=== PATIENT | male | born 1970 ===

== ENCOUNTER → 2025-01-17 | Outpatient (CLI) | payer BC | END | disposition home or self-care (01) | LOC: LAB SHORT 10:19 → LAB 10:19 | DX: H02.822 Cysts of right lower eyelid (principal) | CPT/HCPCS: 88305 ==

== ENCOUNTER 2025-05-29 12:10 | Day surgery (SDC) | payer OTHER ==
[~2025-05-29] VITALS: Ht 175.3 cm; Wt 126.5 kg
[~2025-05-29 12:10] MED LIST: METF500 PO; SILD50TA PO
[2025-05-29 12:35] VITALS: BP 155/98
--- NOTE | 2025-05-29 12:46 | NUR ---
ANESTHESIA CONSULT REQUESTED DUE TO PT'S STOP BANG SCORE OF 5-6 AND HIS BMI BEING 41.1. DR CHAPMAN TO PROCEED WITH CASE. Ambulatory in Day [facility] WITH STEADY GAIT. History, Chart, Medications and Allergies reviewed before start of procedure. Pre-Op teaching done. Pt verbalizes understanding. Patient confirms NPO status and agrees with scheduled surgery. DR CHAPMAN AND DR MENA INFORMED OF PT'S BLOOD SUGAR LEVEL OF 256.
[2025-05-29] MEDS ORDERED: Insulin Regular 100 UNIT/ML 10ML Vial SC ONE (13:00)
--- NOTE | 2025-05-29 13:18 | NUR ---
05/29/25 1318 Ramses Henry History, Chart, Medications and Allergies reviewed before start of procedure.MONITOR INTACT WITH CONTINUOUS PULSE OXIMETRY, CONTINUOUS END TITAL CO2, 3-LEAD EKG AND INTERMITTENT BLOOD PRESSURE.O2 VIA POM INTACT THROUGHOUT SEDATION/PROCEDURE.See Anesthesia record.
[2025-05-29 13:53] VITALS: BP 143/94
[2025-05-29 14:06] VITALS: BP 140/98
--- NOTE | 2025-05-29 14:09 | NUR ---
Discharge instructions reviewed with patient. Patient verbalizes understanding. Copy given to patient to take home. Patient States Post-Procedure ride home has been arranged. Discharged via wheelchair to private car for ride home. ALL BELONGINGS RETURNED TO PATIENT INCLUDING EYE GLASSES AND PHONE.
== END 2025-05-29 23:23 | disposition home or self-care (01) ==
LOC: ORSCMMR 12:10 → ORD 13:45 → ORSCMMR 13:45
PROVIDERS: Surgery
PROC: 0DBL8ZX Excision of Transverse Colon, Via Natural or Artificial Opening Endoscopic, Diagnostic (ICD-10-PCS; principal; 2025-05-29 13:45)
PROC: 0DBN8ZX Excision of Sigmoid Colon, Via Natural or Artificial Opening Endoscopic, Diagnostic (ICD-10-PCS; principal; 2025-05-29 13:45)
DX: Z12.11 Encounter for screening for malignant neoplasm of colon (principal); D12.3 Benign neoplasm of transverse colon; K63.5 Polyp of colon; K64.1 Second degree hemorrhoids; G47.10 Hypersomnia, unspecified; E11.9 Type 2 diabetes mellitus without complications; E66.01 Morbid (severe) obesity due to excess calories; Z68.38 Body mass index [BMI] 38.0-38.9, adult; Z79.84 Long term (current) use of oral hypoglycemic drugs; Z87.891 Personal history of nicotine dependence
CPT/HCPCS: 82947; 88305; J1815; J2704; J7120